=== PATIENT | female | born 1940 | race Caucasian/White ===

== ENCOUNTER → 2017-12-29 | Outpatient (CLI) | payer MEDICARE ==
--- NOTE | 2017-12-30 02:40 | MR ---
EXAMINATION TYPE: MR brain/orbits wo/w con DATE OF EXAM: 12/29/2017 COMPARISON: None HISTORY: Headaches,Double Vision, [place] Palsy, Weight gain TECHNIQUE: Multiplanar, multisequence images of the brain and brainstem is performed without and with IV contras t, utilizing 12.5 mL intravenous Gadavist . FINDINGS: There is cerebral cortical atrophy. There is no mass effect nor midline shift. There is no sign of in tracranial hemorrhage. Corpus callosum appears normal. The brainstem appears normal. Sella turcica ap pears normal. The globes are symmetric. There is a elongated 16 x 8 mm area of dense uniform pathologic enhancement on the superior aspect of the right retro-orbital soft tissues. This appears to be contiguous with a draining vein. IMPRESSION: Superior retro-orbital enhancing mass on the right side. 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 Mild cerebral cortical atrophy appropriate for age. Otherwise negative MR scan of the brain.
== END | disposition home or self-care (01) ==
LOC: RADMRIMAIN 18:18
PROVIDERS: ATTEND Ophthalmology
DX: G31.1 Senile degeneration of brain, not elsewhere classified (principal); H05.89 Other disorders of orbit
CPT/HCPCS: 70543; 70553; A9581

== ENCOUNTER 2018-03-01 11:15 | Inpatient (IN) | payer MEDICARE ==
[2018-03-01 14:11] VITALS: BMI 42.4
[2018-03-01] MEDS ORDERED: VANCOMYCIN IV PER PHARMACY 1 EACH MISC MISCELLANE PRN (15:02)
[2018-03-01 15:12] LABS: Basophils # (A) 0.1 k/uL (0-0.2); Basophils % (A) 1 %; Eosinophils # (A) 0.4 k/uL (0-0.7); Eosinophils % (A) 4 %; HCT 30.6 % (34.0-46.0); HGB 9.9 gm/dL (11.4-16.0); Lymphocytes # (A) 2.1 k/uL (1.0-4.8); Lymphocytes % (A) 18 %; MCHC 32.4 g/dL (31.0-37.0); MCV 86.4 fL (80.0-100.0); Mean Platelet Volume 7.8; Monocytes # (A) 0.8 k/uL (0-1.0); Monocytes % (A) 7 %; Neutrophils % (A) 68 %; Platelet Count 283 k/uL (150-450); RBC 3.55 m/uL (3.80-5.40); RDW 13.9 % (11.5-15.5); WBC 11.8 k/uL (3.8-10.6)
--- NOTE | 2018-03-01 15:19 | P.HPIM ---
History of Present Illness 77-year-old pleasant female was transferred from [facility] because of her possible bilateral pneumonia. Patient presented there with the cellulitis of bilateral lower extremity more right more than left and the left has an ulcer and had a recent the laser procedure for varicose veins in bilateral lower extremities. Patient presented there with type fever confusion. Patient also had a year that is positive although patient doesn't have any symptoms of urinary tract infection urine culture is positive for Enterococcus faecalis sensitive to ampicillin and vancomycin. Patient was started on Unasyn and vancomycin with improvement in the white blood cell count from 25,000-10,000 and improvement in her fevers although chest x-ray today morning is read as bilateral diffuse pneumonia and do not have any influenza available from their lab wound cultures are not available at this time patient although her creatinine has improved from 1.5-1.1. She was later switched to Cipro when they found she has pneumonia. Patient is afebrile for 48 hours. Patient was comparing of dry cough without any sputum production In route to the hospital patient was comparing a pressure-like chest pain in the retrosternal area nonradiating not associated with the be breathing, EKG did not show any significant ST-T wave changes nonspecific T-wave changes on the inferior leads troponin will be obtained patient was not diaphoretic patient pain lasted for a few minutes area was checked, the troponin and another EKG in 8 hours. Review of Systems REVIEW OF SYSTEMS: CONSTITUTIONAL: No fever, no malaise, no fatigue. HEENT: No recent visual problems or hearing problems. Denied any sore throat. CARDIOVASCULAR: No chest pain, orthopnea, PND, no palpitations, no syncope. PULMONARY: No shortness of breath, no cough, no hemoptysis. GASTROINTESTINAL: No diarrhea, no nausea, no vomiting, no abdominal pain. Normoactive bowel sounds. NEUROLOGICAL: No headaches, no weakness, no numbness. HEMATOLOGICAL: Denies any bleeding or petechiae. GENITOURINARY: Denies any burning micturition, frequency, or urgency. MUSCULOSKELETAL/RHEUMATOLOGICAL: Denies any joint pain, swelling, or any muscle pain. ENDOCRINE: Denies any polyuria or polydipsia. The rest of the 14-point review of systems is negative. Past Medical History Past Medical History: Diabetes Mellitus, Hypertension, Osteoarthritis (OA), Thyroid Disorder History of Any Multi-Drug Resistant Organisms: None Reported Past Surgical History: Orthopedic Surgery Additional Past Surgical History / Comment(s): laser sx for veins Past Psychological History: Depression Additional Psychological History / Comment(s): pt lives alone four story single family house. Smoking Status: Former smoker - Past Family History Mother Family Medical History: Dementia, Hypertension Father Additional Family Medical History / Comment(s): colon cancer Medications and Allergies Allergies Allergy/AdvReac Type Severity Reaction Status Date / Time No Known Allergies Allergy Verified 03/01/18 14:58 Physical Exam Vitals: Vital Signs Temp Pulse Resp BP Pulse Ox 03/01/18 14:00 98.6 F 67 18 155/67 94 L Intake and Output 03/01/18 03/01/18 03/01/18 06:59 14:59 22:59 Other: Weight 122.9 kg PHYSICAL EXAMINATION: GENERAL: The patient is alert and oriented x3, not in any acute distress. Well developed, well nourished. HEENT: Pupils are round and equally reacting to light. EOMI. No scleral icterus. No conjunctival pallor. Normocephalic, atraumatic. No pharyngeal erythema. No thyromegaly. CARDIOVASCULAR: S1 and S2 present. No murmurs, rubs, or gallops. PULMONARY: Chest is clear to auscultation, no wheezing or crackles. ABDOMEN: Soft, nontender, nondistended, normoactive bowel sounds. No palpable organomegaly. MUSCULOSKELETAL: No joint swelling or deformity. EXTREMITIES: No cyanosis, clubbing, or pedal edema. NEUROLOGICAL: Gross neurological examination did not reveal any focal deficits. SKIN: There is mild cellulitis in the right lower extremity with local is of temperature no tenderness just above the ankle area and the estevez and the patient has an ulcer in the left leg lateral aspect few centimeters able ankle with surrounding cellulitis. Thrombosis Risk Factor Assmnt - Choose All That Apply Any of the Below Risk Factors Present?: No Other Risk Factors: Yes Each Risk Factor Represents 3 Points: Age 75 years or older Thrombosis Risk Factor Assessment Total Risk Factor Score: 3 Thrombosis Risk Factor Assessment Level: Moderate Risk Assessment and Plan Plan: -Sepsis which improved at this time most probably due to cellulitis patient was on vancomycin and Zosyn and infectious disease will be consulted will obtain he has a PCR testing testing her chest x-ray findings. We'll try to find out from [facility] if they obtain any wound cultures. -Bilateral infiltrates suspicious for pneumonia although patient with clinical symptomatology is not typical for pneumonia the other differentials being acute lung injury from sepsis, atypical pneumonia or influenza pneumonia. Infectious disease was consulted will repeat the chest x-ray here to better characterize the infiltrates. She is having dry cough. -Hypothyroidism -Type 2 diabetes mellitus -Acute renal failure secondary to sepsis which improved at this time. Sepsis improved as well. -Hypertension -Awaiting for her medications to be verified was that done I'll do the medication reconciliation for above-mentioned chronic medical problems
[2018-03-01 15:21] LABS: Albumin 2.8 g/dL (3.5-5.0); Calcium 9.1 mg/dL (8.4-10.2); Potassium 3.9 mmol/L (3.5-5.1); Total Bilirubin 0.3 mg/dL (0.2-1.3); Total Protein 6.2 g/dL (6.3-8.2)
--- NOTE | 2018-03-01 15:28 | XR ---
EXAMINATION TYPE: XR chest 2V DATE OF EXAM: 03/01/2018 COMPARISON: Prior chest x-ray dated 02/08/2015 HISTORY: Pneumonia TECHNIQUE: Frontal and lateral views of the chest are obtained. FINDINGS: Bilateral airspace disease is present. No evident pneumothorax or pleural effusion. Cardio mediastinal silhouette, pulmonary vascularity and ana cristina are within normal limits. IMPRESSION: Correlate for pneumonia, pulmonary edema, alveolitis.
[2018-03-01] MEDS ORDERED: VANCOMYCIN 2,250 MG in SODIUM CHLORIDE 0.9% 500 ML 500 ML IVPB ONE ×2 (16:00→17:00)
[2018-03-01] MEDS ORDERED: PIPERACILLIN-TAZOBACTAM 3.375 GM in SODIUM CHLORIDE 0.9% 100 ML IVPB SCH (16:00)
[2018-03-01] MEDS: HEPARIN SODIUM,PORCINE 5,000 UNIT/ML 1 ML VIAL SQ SCH ×2 (16:31→23:14)
[2018-03-01 17:29] LABS: Glucose,Whole Blood 104 mg/dL (75-99)
[2018-03-01] MEDS: INSULIN ASPART 100 UNIT/ML 1 ML 10 ML VIAL SQ SCH ×2 (18:00→22:19)
[2018-03-01] MEDS: AMPICILLIN-SULBACTAM 3 GM in SODIUM CHLORIDE 0.9% 100 ML IVPB SCH ×2 (18:43→23:14)
[2018-03-01 20:39] LABS: Glucose,Whole Blood 145 mg/dL (75-99)
[2018-03-01] MEDS ORDERED: MECLIZINE 25 MG TAB PO PRN (21:10)
[2018-03-01] MEDS ORDERED: NITROGLYCERIN SL TABS 0.4 MG TAB SUBLINGUAL PRN (21:10)
[2018-03-01] MEDS ORDERED: IBUPROFEN 800 MG TAB PO PRN (21:10)
[2018-03-01] MEDS ORDERED: ACETAMINOPHEN TAB 325 MG TAB PO PRN (21:17)
[2018-03-01] MEDS: FAMOTIDINE 20 MG TAB PO SCH (22:18)
[2018-03-01] MEDS: INSULIN DETEMIR 100 UNIT/ML 10 ML VIAL SQ SCH (22:18)
--- NOTE | 2018-03-01 23:48 | P.CONS ---
History of Present Illness - Reason for Consult Consult date: 03/01/18 - Chief Complaint weakness - History of Present Illness 77-year-old female who lives independently, was transferred to her facility after several days of inpatient stay at the outside hospital. The patient's daughter is present and helps with the past history, apparently the patient was not feeling well and the coworker. 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 They came and checked on her she seemed to be ill but cognizant. Apparently after that she lost 3 days of time, she did not take care of herself, she did not take care of her cat, she did not take her medications and eventually awoken to EMS in her home. She was transferred local hospital and it was not 2 hours later she started to have an understanding that she had become ill. She's not had an episode like this in the past. The patient does have a history of significant chronic venous stasis to her lower extremities has been cared for in the outpatient setting. She's undergone multiple procedures to the lower extremities with laser venous ablation therapy and injection treatments for her chronic venous stasis and the results and ulcerations. She relates since procedures she's had some improvement but still having some ulcerations to her left leg. She does relate that she has significant degenerative joint disease was also to potentially receive some stem cell injections into her left knee for her chronic difficulties. Patient however became very ill and was hospitalized. During her hospital stay multiple events occurred including evidence of a positive blood culture with Streptococcus, urine culture with enterococcus in the markedly elevated BNP level. The patient relates she is feeling better but has developed some worsening shortness of breath that was not present at admission this seems to be showing just some improvement at this point in time since she has been back on some Lasix therapy. The patient relates that she routinely is supposed to be on Lasix however whenever she travels she stops taking Lasix because it makes her urinate too much. She does have a trip to [place] scheduled coming up soon and she is aware that she is not currently able to make that trip. She does not believe that she's been taking her Lasix since there December. Review of Systems HEENT:Denies headache or acute visual change. Denies sinus or mouth discomforts. Denies neck stiffness or pain. Denies significant oral cavity pain. Denies difficulty on swallowing. Lungs:As per the HPI has had difficulties with shortness of breath, denies significant cough or sputum production no hemoptysis Cardiovascular: Has had some chest pain and fullness but not severe enough that she would take nitroglycerin for. As noted she's had shortness of breath orthopnea and dyspnea on exertion but overall somewhat improved over the last day but still persistent Gastrointestinal:Denies nausea, vomiting, diarrhea, constipation, hematemesis, melena, hematochezia. No no significant change of bowel habit noticed. Musculoskeletal: denies significant myalgias or arthralgias. No new joint swelling. Denies new back pain. Skin: Ulcers to left leg Neuro: Denies headache or visual change. Denies any new onset weakness or difficulty with ambulation. Denies falls or seizures. Psychiatric:Denies anxiety or depression. Endocrine: chronic fatigue and weight gain Past Medical History Past Medical History: Diabetes Mellitus, Hypertension, Osteoarthritis (OA), Thyroid Disorder History of Any Multi-Drug Resistant Organisms: None Reported Past Surgical History: Orthopedic Surgery Additional Past Surgical History / Comment(s): laser sx for veins Past Psychological History: Depression Additional Psychological History / Comment(s): pt lives alone four story single family house. . Still works in a local factory. No experience. Was on a cruise in December in the [place]. Pet cat at home. Adult daughter remains her primary contact. no current tobacco use no alcohol use Smoking Status: Former smoker - Past Family History Mother Family Medical History: Dementia, Hypertension Father Additional Family Medical History / Comment(s): colon cancer Medications and Allergies Home Medications and Allergies Comment(s): Current Medications Acetaminophen (Tylenol Tab) 650 mg PO Q6HR PRN PRN Reason: Fever and/ or Pain Aspirin (Aspirin) 81 mg PO DAILY [facility] Citalopram Hydrobromide (Celexa) 20 mg PO DAILY [facility] Diltiazem HCl (Cardizem Cd) 300 mg PO DAILY [facility] Famotidine (Pepcid) 20 mg PO BID [facility] Last Admin: 03/01/18 22:18 Dose: 20 mg Furosemide (Lasix) 40 mg PO DAILY [facility] Heparin Sodium (Porcine) (Heparin) 5,000 unit SQ Q8HR [facility] Last Admin: 03/01/18 23:14 Dose: 5,000 unit Hydrochlorothiazide (Hydrodiuril) 25 mg PO DAILY [facility] Ampicillin Sodium/Sulbactam (Sodium 3 gm/ Sodium Chloride) 100 mls @ 200 mls/ hr IVPB Q6HR [facility] Last Admin: 03/01/18 23:14 Dose: 200 mls/hr Ibuprofen (Motrin) 800 mg PO TID PRN PRN Reason: Pain Insulin Aspart (Novolog) 0 unit SQ ACHS [facility]; Protocol Last Admin: 03/01/18 22:19 Dose: 1 unit Insulin Detemir (Levemir) 30 unit SQ HS [facility] Last Admin: 03/01/18 22:18 Dose: 30 unit Levothyroxine Sodium (Synthroid) 200 mcg PO DAILY@0630 [facility] Lisinopril (Zestril) 40 mg PO DAILY [facility] Meclizine HCl (Antivert) 25 mg PO TID PRN PRN Reason: Vertigo Nitroglycerin (Nitrostat) 0.4 mg SUBLINGUAL Q5M PRN PRN Reason: Chest Pain Victoza 1.8mg 1.8 mg SQ DAILY [facility] Pantoprazole Sodium (Protonix) 40 mg PO AC-[id number] [facility] Home Medications Medication Instructions Recorded Confirmed Type Aspirin EC [Ecotrin Low Dose] 81 mg PO DAILY 03/01/18 03/01/18 History Citalopram Hydrobromide [CeleXA] 20 mg PO DAILY 03/01/18 03/01/18 History Diltiazem HCl [Diltiazem ER] 300 mg PO DAILY 03/01/18 03/01/18 History Furosemide [Lasix] 40 mg PO DAILY 03/01/18 03/01/18 History Hydrochlorothiazide [Hydrodiuril] 25 mg PO DAILY 03/01/18 03/01/18 History Ibuprofen [Motrin] 800 mg PO TID PRN 03/01/18 03/01/18 History Insulin Glargine,Hum.rec.anlog 30 unit SQ DAILY 03/01/18 03/01/18 History [Lantus Solostar] Lansoprazole 30 mg PO DAILY 03/01/18 03/01/18 History Levothyroxine Sodium [Synthroid] 200 mcg PO DAILY 03/01/18 03/01/18 History Liraglutide [Victoza 3-Andrea] 1.8 mg SQ DAILY 03/01/18 03/01/18 History Lisinopril 40 mg PO DAILY 03/01/18 03/01/18 History Meclizine [Antivert] 25 mg PO TID PRN 03/01/18 03/01/18 History Nitroglycerin Sl Tabs [Nitrostat] 0.4 mg SUBLINGUAL Q5M PRN 03/01/18 03/01/18 History Allergies Allergy/AdvReac Type Severity Reaction Status Date / Time No Known Allergies Allergy Verified 03/01/18 14:58 Physical Exam Vitals: Vital Signs Temp Pulse Resp BP Pulse Ox 03/01/18 22:43 98.0 F 71 18 145/70 96 03/01/18 14:00 98.6 F 67 18 155/67 94 L Intake and Output 03/01/18 03/01/18 03/02/18 14:59 22:59 06:59 Other: Weight 122.9 kg Pleasant 77-year-old woman who has obesity is modestly comfortable at this time HEENT: Anicteric conjunctiva are pink and moist nasal mucosa grossly intact without significant lesions, there is no thrush. Dentition is poor Neck: The neck is supple without significant lymphadenopathy or thyromegaly. Lungs: There is symmetrical bilateral air entry, few basilar crackles without significant bronchial sounds no dullness or egophony is noted Heart: Regular rate and rhythm with an audible S1-S2, no S3 soft S4. 2/6 systolic murmur left sternal border that radiates to the axilla PMI is nondisplaced without heave or thrill Abdomen: Obese, Positive bowel sounds soft and nontender without palpable masses or organomegaly. There was no guarding or rebound. Extremities: The upper extremities have excellent pulses they are symmetric, no significant petechiae or telangiectasia. No splinter hemorrhages were noted. The lower extremities revealed evidence of the lower extremity edema right greater than left at this time. There is evidence of some erythema to the right leg with some warmth and minimal tenderness. There are ulcerations in the left lateral leg please see the nursing photography for evaluation of these ulcerations that are full-thickness and present on admission. Appear to be venous stasis in nature. The legs are not very tender. Neuro: Awake alert oriented to person place and time. There are no acute new gross focal sensory motor deficits.Daughter was present relates that her mother is at her baseline mental status with no new deficits. Results CBC & Chem 7: 03/01/18 15:00 03/01/18 15:00 Labs: Abnormal Lab Results - Last 24 Hours (Table) 03/01/18 03/01/18 03/01/18 Range/Units 15:00 15:00 17:26 WBC 11.8 H (3.8-10.6) k/uL RBC 3.55 L (3.80-5.40) m/uL Hgb 9.9 L (11.4-16.0) gm/dL Hct 30.6 L (34.0-46.0) % Neutrophils # 8.0 H (1.3-7.7) k/uL Glucose 124 H (74-99) mg/dL POC Glucose (mg/dL) 104 H (75-99) mg/dL Total Protein 6.2 L (6.3-8.2) g/dL Albumin 2.8 L (3.5-5.0) g/dL 03/01/18 Range/Units 20:38 WBC (3.8-10.6) k/uL RBC (3.80-5.40) m/uL Hgb (11.4-16.0) gm/dL Hct (34.0-46.0) % Neutrophils # (1.3-7.7) k/uL Glucose (74-99) mg/dL POC Glucose (mg/dL) 145 H (75-99) mg/dL Total Protein (6.3-8.2) g/dL Albumin (3.5-5.0) g/dL Laboratory Results WBC 11.8 k/uL (3.8-10.6) H 03/01/18 15:00 RBC 3.55 m/uL (3.80-5.40) L 03/01/18 15:00 Hgb 9.9 gm/dL (11.4-16.0) L 03/01/18 15:00 Hct 30.6 % (34.0-46.0) L 03/01/18 15:00 MCV 86.4 fL (80.0-100.0) 03/01/18 15:00 MCH 28.0 pg (25.0-35.0) 03/01/18 15:00 MCHC 32.4 g/dL (31.0-37.0) 03/01/18 15:00 RDW 13.9 % (11.5-15.5) 03/01/18 15:00 Plt Count 283 k/uL (150-450) 03/01/18 15:00 Neutrophils % 68 % 03/01/18 15:00 Lymphocytes % 18 % 03/01/18 15:00 Monocytes % 7 % 03/01/18 15:00 Eosinophils % 4 % 03/01/18 15:00 Basophils % 1 % 03/01/18 15:00 Neutrophils # 8.0 k/uL (1.3-7.7) H 03/01/18 15:00 Lymphocytes # 2.1 k/uL (1.0-4.8) 03/01/18 15:00 Monocytes # 0.8 k/uL (0-1.0) 03/01/18 15:00 Eosinophils # 0.4 k/uL (0-0.7) 03/01/18 15:00 Basophils # 0.1 k/uL (0-0.2) 03/01/18 15:00 Sodium 138 mmol/L (137-145) 03/01/18 15:00 Potassium 3.9 mmol/L (3.5-5.1) 03/01/18 15:00 Chloride 103 mmol/L (98-107) 03/01/18 15:00 Carbon Dioxide 27 mmol/L (22-30) 03/01/18 15:00 Anion Gap 8 mmol/L 03/01/18 15:00 BUN 17 mg/dL (7-17) 03/01/18 15:00 Creatinine 0.99 mg/dL (0.52-1.04) 03/01/18 15:00 Est GFR (CKD-EPI)AfAm 64 (>60 ml/min/1.73 sqM) 03/01/18 15:00 Est GFR (CKD-EPI)NonAf 56 (>60 ml/min/1.73 sqM) 03/01/18 15:00 Glucose 124 mg/dL (74-99) H 03/01/18 15:00 POC Glucose (mg/dL) 145 mg/dL (75-99) H 03/01/18 20:38 POC Glu Head Of Ethics And Compliance ID Dye, Maribeth 03/01/18 20:38 Calcium 9.1 mg/dL (8.4-10.2) 03/01/18 15:00 Total Bilirubin 0.3 mg/dL (0.2-1.3) 03/01/18 15:00 AST 23 U/L (14-36) 03/01/18 15:00 ALT 33 U/L (9-52) 03/01/18 15:00 Alkaline Phosphatase 66 U/L (38-126) 03/01/18 15:00 Troponin I <0.012 ng/mL (0.000-0.034) 03/01/18 15:00 NT-Pro-B Natriuret Pep 863 pg/mL 03/01/18 15:00 Total Protein 6.2 g/dL (6.3-8.2) L 03/01/18:00 Albumin 2.8 g/dL (3.5-5.0) L 03/01/18 15: Random Vancomycin <5.0 ug/mL 03/01/18 15:00 Assessment and Plan (1) Streptococcal sepsis Narrative/Plan: 77 show female presents an outside hospital with alteration of her mental status and was not functioning well for approximately 3 days. She is now had a recovery of her neurological status and is clear and interactive. However continues to feel short of breath and has had some chest heaviness. She relates it does not feel like the tenderness that she had some and she takes her nitroglycerin. Patient has evidence of the lower extremity erythema and ulcerations of the left leg. It appears the skin is a portal of entry for her streptococcal sepsis. As noted there is also urinary tract infection with enterococcus. Consequently antibiotic therapy is transitioned to Unasyn which should give us excellent coverage for both of these isolated pathogens. Follow blood cultures have been requested. The patient also appears to have evidence of congestive heart failure as etiology of the changes on her chest x-ray. She did have a computed tomography scan at the other hospital which failed to reveal evidence of pulmonary embolism , however there was evidence of some change that is now considerably worsened after she has had significant amounts of hydration. She was or shortness of breath is improving she's had some Lasix. Echocardiogram is requested to further evaluate her congestive heart failure, her ejection fraction and the extent of her murmur It is likely that her congestive heart failure was worsened by the onset of the sepsis and her lack of compliance with taking her Lasix in the outpatient setting. I agree that the patient will not be ready to go to [facility]. Current Visit: Yes Status: Acute Code(s): A40.9 - STREPTOCOCCAL SEPSIS, UNSPECIFIED SNOMED Code(s): 526444194 (2) Enterococcus UTI Current Visit: Yes Status: Acute Code(s): N39.0 - URINARY TRACT INFECTION, SITE NOT SPECIFIED; B95.2 - ENTEROCOCCUS THE CAUSE OF DISEASES CLASSIFIED ELSEWHERE SNOMED Code(s): 169710979643225 (3) Acute on chronic systolic (congestive) heart failure Current Visit: Yes Status: Acute Code(s): I50.23 - ACUTE ON CHRONIC SYSTOLIC (CONGESTIVE) HEART FAILURE SNOMED Code(s): 569949161 (4) Chronic venous hypertension with ulcer Current Visit: Yes Status: Acute Code(s): I87.319 - CHRONIC VENOUS HYPERTENSION W ULCER OF UNSP LOW EXTRM; L97.909 - NON-PRS CHRONIC ULC UNSP PRT OF UNSP LOW LEG W UNSP SEVERITY SNOMED Code(s): 838839717
[2018-03-02] MEDS: AMPICILLIN-SULBACTAM 3 GM in SODIUM CHLORIDE 0.9% 100 ML IVPB SCH ×4 (05:20→23:57)
[2018-03-02] MEDS: LEVOTHYROXINE 100 MCG TAB PO SCH (05:21)
[2018-03-02] MEDS: INSULIN ASPART 100 UNIT/ML 1 ML 10 ML VIAL SQ SCH ×4 (07:12→21:16)
[2018-03-02 07:34] LABS: Glucose,Whole Blood 71 mg/dL (75-99)
[2018-03-02] MEDS: VICTOZA 1.8MG SQ SCH (08:05)
[2018-03-02] MEDS: PANTOPRAZOLE 40 MG TABLET PO SCH (08:06)
[2018-03-02] MEDS: HEPARIN SODIUM,PORCINE 5,000 UNIT/ML 1 ML VIAL SQ SCH ×3 (08:06→23:58)
[2018-03-02] MEDS: ASPIRIN 81 MG PO SCH (08:07)
[2018-03-02] MEDS: LISINOPRIL 20 MG TAB PO SCH (08:07)
[2018-03-02] MEDS: DILTIAZEM CD 300 MG CAP.ER.24H PO SCH (08:07)
[2018-03-02] MEDS: FUROSEMIDE 40 MG TAB PO SCH (08:07)
[2018-03-02] MEDS: FAMOTIDINE 20 MG TAB PO SCH (08:07)
[2018-03-02] MEDS: HYDROCHLOROTHIAZIDE 25 MG TAB PO SCH (08:07)
[2018-03-02] MEDS: CITALOPRAM HYDROBROMIDE 20 MG TAB PO SCH (08:07)
[2018-03-02] MEDS ORDERED: VICTOZA 1.8MG SQ SCH (09:00)
[2018-03-02 09:31] LABS: HGB 10.3 gm/dL (11.4-16.0); MCH 27.4 pg (25.0-35.0); MCHC 31.3 g/dL (31.0-37.0); MCV 87.4 fL (80.0-100.0); Mean Platelet Volume 7.7; Platelet Count 347 k/uL (150-450); RBC 3.77 m/uL (3.80-5.40); RDW 13.9 % (11.5-15.5); WBC 11.2 k/uL (3.8-10.6)
[2018-03-02 09:51] LABS: Calcium 9.1 mg/dL (8.4-10.2)
[2018-03-02] MEDS ORDERED: VANCOMYCIN 2,250 MG in SODIUM CHLORIDE 0.9% 500 ML 500 ML IVPB SCH (12:00)
[2018-03-02 12:24] LABS: Glucose,Whole Blood 102 mg/dL (75-99)
--- NOTE | 2018-03-02 13:23 | P.PN ---
Subjective 77-year-old female admitted secondary to sepsis from a cellulitis of bilateral lower extremity is predominantly in the left lower extremity. Patient is on Unasyn and vancomycin and do not have any wound cultures available from the other hospital. Patient appears to have all the lightest from my mild acute lung injury from sepsis and do not believe patient has CHF exacerbation. Echocardiogram is pending patient's BNP is 800 patient does not have any JVD. No clinical evidence of heart failure or heart failure exacerbation at this time. My suspicion is extremely low for pneumonia. Patient may have asymptomatic bacteriuria does have urine cultures positive for enterococcus. Constitutional: Denied any fatigue denied any fever. Cardio vascular: denied any chest pain, palpitations Gastrointestinal denied any nausea vomiting Pulmonary: Denied any shortness of breath cough Neurologic denied any new focal deficits All inpatient medications were reviewed and appropriate changes in these medications as dictated in the interval history and assessment and plan. Objective - Vital Signs Vital signs: Vital Signs Temp 97.0 F L 03/02/18 13:12 Pulse 69 03/02/18 13:12 Resp 17 03/02/18 13:12 BP 145/59 03/02/18 13:12 Pulse Ox 95 03/02/18 13:12 Intake & Output 03/01/18 03/02/18 03/02/18 18:59 06:59 18:59 Weight 122.9 kg 124 kg Other: # Voids 2 1 - Exam PHYSICAL EXAMINATION: GENERAL: The patient is alert and oriented x3, not in any acute distress. Well developed, well nourished. HEENT: Pupils are round and equally reacting to light. EOMI. No scleral icterus. No conjunctival pallor. Normocephalic, atraumatic. No pharyngeal erythema. No thyromegaly. CARDIOVASCULAR: S1 and S2 present. No murmurs, rubs, or gallops. PULMONARY: Chest is clear to auscultation, no wheezing or crackles. ABDOMEN: Soft, nontender, nondistended, normoactive bowel sounds. No palpable organomegaly. MUSCULOSKELETAL: No joint swelling or deformity. EXTREMITIES: No cyanosis, clubbing, or pedal edema. NEUROLOGICAL: Gross neurological examination did not reveal any focal deficits. SKIN: There is mild cellulitis in the right lower extremity with local is of temperature no tenderness just above the ankle area and the estevez and the patient has an ulcer in the left leg lateral aspect few centimeters able ankle with surrounding cellulitis. - Labs CBC & Chem 7: 03/02/18 09:00 03/02/18 09:00 Labs: Abnormal Lab Results - Last 24 Hours (Table) 03/01/18 03/01/18 03/01/18 Range/Units 15:00 15:00 15:00 WBC 11.8 H (3.8-10.6) k/uL RBC 3.55 L (3.80-5.40) m/uL Hgb 9.9 L (11.4-16.0) gm/dL Hct 30.6 L (34.0-46.0) % Neutrophils # 8.0 H (1.3-7.7) k/uL Glucose 124 H (74-99) mg/dL POC Glucose (mg/dL) (75-99) mg/dL Total Protein 6.2 L (6.3-8.2) g/dL Albumin 2.8 L (3.5-5.0) g/dL Procalcitonin 0.37 H (0.02-0.09) ng/mL 03/01/18 03/01/18 03/02/18 Range/Units 17:26 20:38 07:08 WBC (3.8-10.6) k/uL RBC (3.80-5.40) m/uL Hgb (11.4-16.0) gm/dL Hct (34.0-46.0) % Neutrophils # (1.3-7.7) k/uL Glucose (74-99) mg/dL POC Glucose (mg/dL) 104 H 145 H 71 L (75-99) mg/dL Total Protein (6.3-8.2) g/dL Albumin (3.5-5.0) g/dL Procalcitonin (0.02-0.09) ng/mL 03/02/18 03/02/18 03/02/18 Range/Units 09:00 09:00 12:16 WBC 11.2 H (3.8-10.6) k/uL RBC 3.77 L (3.80-5.40) m/uL Hgb 10.3 L (11.4-16.0) gm/dL Hct 33.0 L (34.0-46.0) % Neutrophils # (1.3-7.7) k/uL Glucose 102 H (74-99) mg/dL POC Glucose (mg/dL) 102 H (75-99) mg/dL Total Protein (6.3-8.2) g/dL Albumin (3.5-5.0) g/dL Procalcitonin (0.02-0.09) ng/mL Assessment and Plan Plan: -Sepsis which improved at this time most probably due to cellulitis patient was on vancomycin and Unasyn and infectious disease evaluated the patient will obtain he has a PCR testing testing her chest x-ray findings suggestive probably a lightheadedness clinical suspicion for CHF is extremely low. We'll try to find out from [facility] if they obtain any wound cultures. Patient's pro calcitonin levels are minimally elevated -Bilateral infiltrates suspicious for pneumonia although patient with clinical symptomatology is not typical for pneumonia the other differentials being acute lung injury from sepsis, atypical pneumonia or influenza pneumonia. I do not believe patient has CHF. -Hypothyroidism -Type 2 diabetes mellitus -Acute renal failure secondary to sepsis which improved at this time. Sepsis improved as well. -Hypertension -Acute renal failure improved
--- NOTE | 2018-03-02 14:14 | ECHOF ---
Referral Reason:CHF MEASUREMENTS -------- HEIGHT: 170.2 cm WEIGHT: 123.8 kg BP: 145/70 RVIDd: 3.6 cm (< 3.3) IVSd: 1.5 cm (0.6 - 1.1) LVIDd: 4.3 cm (3.9 - 5.3) LVPWd: 1.4 cm (0.6 - 1.1) IVSs: 2.0 cm LVIDs: 3.0 cm LVPWs: 1.8 cm LA Diam: 4.4 cm (2.7 - 3.8) LAESV Index (A-L): 32.06 ml/m Ao Diam: 2.9 cm (2.0 - 3.7) AV Cusp: 1.5 cm (1.5 - 2.6) MV EXCURSION: 12.538 mm (> 18.000) MV EF SLOPE: 75 mm/s (70 - 150) EPSS: 0.7 cm MV E Kvng: 1.62 m/s MV DecT: 269 ms MV A Kvng: 0.94 m/s MV E/A Ratio: 1.72 AV maxP.60 mmHg AV meanP.20 mmHg AR PHT: 402 ms RAP: 5.00 mmHg RVSP: 37.42 mmHg FINDINGS -------- Sinus rhythm. This was a technically adequate study. The left ventricular size is normal. There is moderate concentric left ventricular hypertrophy. O verall left ventricular systolic function is normal with, an EF between 60 - 65 %. The right ventricle is mildly enlarged. LA is midly dilated 29-33ml/m2. The right atrium is normal in size. There is mild aortic valve sclerosis. There is mild aortic regurgitation. The mitral valve leaflets are mildly thickened. Moderate mitral annular calcification present. Mi ld mitral regurgitation is present. Mild tricuspid regurgitation present. There is mild pulmonary hypertension. The right ventricular systolic pressure, as measured by Doppler, is 37.42mmHg. The pulmonic valve was not well visualized. The aortic root size is normal. Normal inferior vena cava with normal inspiratory collapse consistent with estimated right atrial pre ssure of 5 mmHg. The inferior vena cava is mildly dilated. There is no pericardial effusion. CONCLUSIONS -------- 1. Sinus rhythm. 2. This was a technically adequate study. 3. The left ventricular size is normal. 4. There is moderate concentric left ventricular hypertrophy. 5. Overall left ventricular systolic function is normal with, an EF between 60 - 65 %. 6. The right ventricle is mildly enlarged. 7. LA is midly dilated 29-33ml/m2. 8. The right atrium is normal in size. 9. There is mild aortic valve sclerosis. 10. There is mild aortic regurgitation. 11. The mitral valve leaflets are mildly thickened. 12. Moderate mitral annular calcification present. 13. Mild mitral regurgitation is present. 14. Mild tricuspid regurgitation present. 15. There is mild pulmonary hypertension. 16. The right ventricular systolic pressure, as measured by Doppler, is 37.42mmHg. 17. The pulmonic valve was not well visualized. 18. The aortic root size is normal. 19. Normal inferior vena cava with normal inspiratory collapse consistent with estimated right atrial pressure of 5 mmHg. 20. The inferior vena cava is mildly dilated. 21. There is no pericardial effusion. HEEL CEMENTER MACHINE: Kristine Rodriguez RDCS
[2018-03-02 17:07] LABS: Glucose,Whole Blood 113 mg/dL (75-99)
[2018-03-02 20:52] LABS: Glucose,Whole Blood 154 mg/dL (75-99)
[2018-03-02] MEDS: INSULIN DETEMIR 100 UNIT/ML 10 ML VIAL SQ SCH (21:16)
--- NOTE | 2018-03-02 21:38 | P.PN ---
Subjective Progress Note Date: 03/02/18 77-year-old female who lives independently, was transferred to her facility after several days of inpatient stay at the outside hospital. The patient's daughter is present and helps with the past history, apparently the patient was not feeling well and the coworker. 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 They came and checked on her she seemed to be ill but cognizant. Apparently after that she lost 3 days of time, she did not take care of herself, she did not take care of her cat, she did not take her medications and eventually awoken to EMS in her home. She was transferred local hospital and it was not 2 hours later she started to have an understanding that she had become ill. She's not had an episode like this in the past. The patient does have a history of significant chronic venous stasis to her lower extremities has been cared for in the outpatient setting. She's undergone multiple procedures to the lower extremities with laser venous ablation therapy and injection treatments for her chronic venous stasis and the results and ulcerations. She relates since procedures she's had some improvement but still having some ulcerations to her left leg. She does relate that she has significant degenerative joint disease was also to potentially receive some stem cell injections into her left knee for her chronic difficulties. Patient however became very ill and was hospitalized. During her hospital stay multiple events occurred including evidence of a positive blood culture with Streptococcus, urine culture with enterococcus in the markedly elevated BNP level. The patient relates she is feeling better but has developed some worsening shortness of breath that was not present at admission this seems to be showing just some improvement at this point in time since she has been back on some Lasix therapy. The patient relates that she routinely is supposed to be on Lasix however whenever she travels she stops taking Lasix because it makes her urinate too much. She does have a trip to [place] scheduled coming up soon and she is aware that she is not currently able to make that trip. She does not believe that she's been taking her Lasix since there December. 03/02/2018 patient's feeling considerably better today. With diuretic therapy, antibiotics and lower extremity treatment she's feeling considerably better. The edema is improving. The right lower extremity erythema is also improved and there is much less tenderness. Blood Sugars are also improving. Objective - Vital Signs Vital signs: Vital Signs Temp 98.4 F 03/02/18 14:54 Pulse 70 03/02/18 14:54 Resp 20 03/02/18 14:54 BP 160/61 03/02/18 14:54 Pulse Ox 94 L 03/02/18 14:54 Intake & Output 03/02/18 03/02/18 03/03/18 06:59 18:59 06:59 Intake Total 240 Balance 240 Weight 124 kg Intake: Oral 240 Other: Voiding Method Toilet # Voids 2 1 - Exam Pleasant 77-year-old woman who has obesity is modestly comfortable at this time HEENT: Anicteric conjunctiva are pink and moist nasal mucosa grossly intact without significant lesions, there is no thrush. Dentition is poor Neck: The neck is supple without significant lymphadenopathy or thyromegaly. Lungs: There is symmetrical bilateral air entry, few basilar crackles without significant bronchial sounds no dullness or egophony is noted Heart: Regular rate and rhythm with an audible S1-S2, no S3 soft S4. 2/6 systolic murmur left sternal border that radiates to the axilla PMI is nondisplaced without heave or thrill Abdomen: Obese, Positive bowel sounds soft and nontender without palpable masses or organomegaly. There was no guarding or rebound. Extremities: The upper extremities have excellent pulses they are symmetric, no significant petechiae or telangiectasia. No splinter hemorrhages were noted. The lower extremities revealed evidence of the lower extremity edema right greater than left at this time. There is evidence of some erythema to the right leg with some warmth and minimal tenderness which has improved today. There are ulcerations in the left lateral leg please see the nursing photography for evaluation of these ulcerations that are full-thickness and present on admission. Appear to be venous stasis in nature. The legs are not very tender. Neuro: Awake alert oriented to person place and time. There are no acute new gross focal sensory motor deficits.Daughter was present relates that her mother is at her baseline mental status with no new deficits. - Labs CBC & Chem 7: 03/02/18 09:00 03/02/18 09:00 Labs: Abnormal Lab Results - Last 24 Hours (Table) 03/01/18 03/02/18 03/02/18 Range/Units 15:00 07:08 09:00 WBC 11.2 H (3.8-10.6) k/uL RBC 3.77 L (3.80-5.40) m/uL Hgb 10.3 L (11.4-16.0) gm/dL Hct 33.0 L (34.0-46.0) % Glucose (74-99) mg/dL POC Glucose (mg/dL) 71 L (75-99) mg/dL Procalcitonin 0.37 H (0.02-0.09) ng/mL 03/02/18 03/02/18 03/02/18 Range/Units 09:00 12:16 17:05 WBC (3.8-10.6) k/uL RBC (3.80-5.40) m/uL Hgb (11.4-16.0) gm/dL Hct (34.0-46.0) % Glucose 102 H (74-99) mg/dL POC Glucose (mg/dL) 102 H 113 H (75-99) mg/dL Procalcitonin (0.02-0.09) ng/mL 03/02/18 Range/Units 20:50 WBC (3.8-10.6) k/uL RBC (3.80-5.40) m/uL Hgb (11.4-16.0) gm/dL Hct (34.0-46.0) % Glucose (74-99) mg/dL POC Glucose (mg/dL) 154 H (75-99) mg/dL Procalcitonin (0.02-0.09) ng/mL Microbiology - Last 24 Hours (Table) 03/01/18 15:00 Blood Culture - Preliminary Blood No Growth after 24 hours Laboratory Results WBC 11.2 k/uL (3.8-10.6) H 03/02/18 09:00 RBC 3.77 m/uL (3.80-5.40) L 03/02/18 09:00 Hgb 10.3 gm/dL (11.4-16.0) L 03/02/18 09:00 Hct 33.0 % (34.0-46.0) L 03/02/18 09:00 MCV 87.4 fL (80.0-100.0) 03/02/18 09:00 MCH 27.4 pg (25.0-35.0) 03/02/18 09:00 MCHC 31.3 g/dL (31.0-37.0) 03/02/18 09:00 RDW 13.9 % (11.5-15.5) 03/02/18 09:00 Plt Count 347 k/uL (150-450) 03/02/18 09:00 Neutrophils % 68 % 03/01/18 15:00 Lymphocytes % 18 % 03/01/18 15:00 Monocytes % 7 % 03/01/18 15:00 Eosinophils % 4 % 03/01/18 15:00 Basophils % 1 % 03/01/18 15:00 Neutrophils # 8.0 k/uL (1.3-7.7) H 03/01/18 15:00 Lymphocytes # 2.1 k/uL (1.0-4.8) 03/01/18 15:00 Monocytes # 0.8 k/uL (0-1.0) 03/01/18 15:00 Eosinophils # 0.4 k/uL (0-0.7) 03/01/18 15:00 Basophils # 0.1 k/uL (0-0.2) 03/01/18 15:00 Sodium 139 mmol/L (137-145) 03/02/18 09:00 Potassium 4.0 mmol/L (3.5-5.1) 03/02/18 09:00 Chloride 104 mmol/L (98-107) 03/02/18 09:00 Carbon Dioxide 28 mmol/L (22-30) 03/02/18 09:00 Anion Gap 7 mmol/L 03/02/18 09:00 BUN 13 mg/dL (7-17) 03/02/18 09:00 Creatinine 0.98 mg/dL (0.52-1.04) 03/02/18 09:00 Est GFR (CKD-EPI)AfAm 65 (>60 ml/min/1.73 sqM) 03/02/18 09:00 Est GFR (CKD-EPI)NonAf 56 (>60 ml/min/1.73 sqM) 03/02/18 09:00 Glucose 102 mg/dL (74-99) H 03/02/18 09:00 POC Glucose (mg/dL) 154 mg/dL (75-99) H 03/02/18 20:50 POC Glu [employer] Ailin Vidal 03/02/18 20:50 Calcium 9.1 mg/dL (8.4-10.2) 03/02/18 09:00 Total Bilirubin 0.3 mg/dL (0.2-1.3) 03/01/18 15:00 AST 23 U/L (14-36) 03/01/18 15:00 ALT 33 U/L (9-52) 03/01/18 15:00 Alkaline Phosphatase 66 U/L (38-126) 03/01/18 15:00 Troponin I <0.012 ng/mL (0.000-0.034) 03/01/18 15:00 NT-Pro-B Natriuret Pep 863 pg/mL 03/01/18 15:00 Total Protein 6.2 g/dL (6.3-8.2) L 03/01/18 15:00 Albumin 2.8 g/dL (3.5-5.0) L 03/01/18 15:00 Procalcitonin 0.37 ng/mL (0.02-0.09) H 03/01/18 15:00 Random Vancomycin <5.0 ug/mL 03/01/18 15:00 Microbiology 03/01/18 15:00 Blood Blood Culture - Preliminary No Growth after 24 hours Assessment and Plan (1) Streptococcal sepsis Narrative/Plan: 77 year old female presents an outside hospital with alteration of her mental status and was not functioning well for approximately 3 days. She is now had a recovery of her neurological status and is clear and interactive. However continues to feel short of breath and has had some chest heaviness. She relates it does not feel like the tenderness that she had some and she takes her nitroglycerin. Patient has evidence of the lower extremity erythema and ulcerations of the left leg. It appears the skin is a portal of entry for her streptococcal sepsis. As noted there is also urinary tract infection with enterococcus. Consequently antibiotic therapy is transitioned to Unasyn which should give us excellent coverage for both of these isolated pathogens. Follow blood cultures have been requested. The patient also appears to have evidence of congestive heart failure as etiology of the changes on her chest x-ray. She did have a computed tomography scan at the other hospital which failed to reveal evidence of pulmonary embolism , however there was evidence of some change that is now considerably worsened after she has had significant amounts of hydration. She was or shortness of breath is improving she's had some Lasix. Echocardiogram is requested to further evaluate her congestive heart failure, her ejection fraction and the extent of her murmur It is likely that her congestive heart failure was worsened by the onset of the sepsis and her lack of compliance with taking her Lasix in the outpatient setting. I agree that the patient will not be ready to go to [facility]. 03/02/2018 patient's feeling better today. The blood culture from this facility is negative with no evidence of any ongoing bacteremia with strep as noted at the other facility. Patient is denying any new urine symptoms. The patient's echocardiogram reveals evidence of a good ejection fraction, evidence of some valvular regurgitation, and some mild pulmonary hypertension. The patient's BNP has fallen to 800 from 3280 showing a good response to her diuretic therapy. We'll continue with the local care to the lower extremities. Have requested long marianela wraps to be used if compress further up her legs will be more comfortable for her. We discussed the importance of compression in helping this chronic problem. The cellulitis is responding well to the current antibiotic therapy of Unasyn. If she continues to improve at this rate she likely will be able to be discharged home on oral antibiotic therapy. Current Visit: Yes Status: Acute Code(s): A40.9 - STREPTOCOCCAL SEPSIS, UNSPECIFIED SNOMED Code(s): 911085287 (2) Enterococcus UTI Current Visit: Yes Status: Acute Code(s): N39.0 - URINARY TRACT INFECTION, SITE NOT SPECIFIED; B95.2 - ENTEROCOCCUS THE CAUSE OF DISEASES CLASSIFIED ELSEWHERE SNOMED Code(s): 114740185848620 (3) Acute on chronic systolic (congestive) heart failure Current Visit: Yes Status: Acute Code(s): I50.23 - ACUTE ON CHRONIC SYSTOLIC (CONGESTIVE) HEART FAILURE SNOMED Code(s): 959340777 (4) Chronic venous hypertension with ulcer Current Visit: Yes Status: Acute Code(s): I87.319 - CHRONIC VENOUS HYPERTENSION W ULCER OF UNSP LOW EXTRM; L97.909 - NON-PRS CHRONIC ULC UNSP PRT OF UNSP LOW LEG W UNSP SEVERITY SNOMED Code(s): 447776303
[2018-03-03] MEDS: AMPICILLIN-SULBACTAM 3 GM in SODIUM CHLORIDE 0.9% 100 ML IVPB SCH ×4 (06:03→23:56)
[2018-03-03] MEDS: LEVOTHYROXINE 100 MCG TAB PO SCH (06:03)
[2018-03-03 07:05] LABS: Glucose,Whole Blood 110 mg/dL (75-99)
[2018-03-03] MEDS: INSULIN ASPART 100 UNIT/ML 1 ML 10 ML VIAL SQ SCH ×4 (07:45→21:11)
[2018-03-03] MEDS: VICTOZA 1.8MG SQ SCH (07:46)
[2018-03-03] MEDS: LISINOPRIL 20 MG TAB PO SCH (07:47)
[2018-03-03] MEDS: ASPIRIN 81 MG PO SCH (07:47)
[2018-03-03] MEDS: HEPARIN SODIUM,PORCINE 5,000 UNIT/ML 1 ML VIAL SQ SCH ×3 (07:47→23:56)
[2018-03-03] MEDS: CITALOPRAM HYDROBROMIDE 20 MG TAB PO SCH (07:48)
[2018-03-03] MEDS: DILTIAZEM CD 300 MG CAP.ER.24H PO SCH (07:48)
[2018-03-03] MEDS: FUROSEMIDE 40 MG TAB PO SCH (07:48)
[2018-03-03] MEDS: FAMOTIDINE 20 MG TAB PO SCH (07:48)
[2018-03-03] MEDS: HYDROCHLOROTHIAZIDE 25 MG TAB PO SCH (07:48)
[2018-03-03] MEDS: PANTOPRAZOLE 40 MG TABLET PO SCH (07:48)
[2018-03-03 12:14] LABS: Glucose,Whole Blood 127 mg/dL (75-99)
--- NOTE | 2018-03-03 15:36 | P.DS ---
Providers Date of admission: 03/01/18 13:57 Attending physician: Balta Nice Consults: 03/01/18 14:45 Consult Physician Urgent Consulting Provider: Margarito Brian Reason/Comments: cellulitis Do you want consulting provider notified?: Yes Placement Type Exists?: Yes [facility] Course: This dictation is both H&P and discharge summary 77-year-old female admitted secondary to sepsis from a cellulitis of bilateral lower extremity is predominantly in the left lower extremity. Patient is on Unasyn and vancomycin and do not have any wound cultures available from the other hospital. Patient appears to have all the lightest from my mild acute lung injury from sepsis and do not believe patient has CHF exacerbation. Echocardiogram is pending patient's BNP is 800 patient does not have any JVD. No clinical evidence of heart failure or heart failure exacerbation at this time. My suspicion is extremely low for pneumonia. Patient may have asymptomatic bacteriuria does have urine cultures positive for enterococcus. 03/03/2018 Patient is clinically doing well at this time. If cleared by infectious disease will be discharged today PHYSICAL EXAMINATION: GENERAL: The patient is alert and oriented x3, not in any acute distress. Well developed, well nourished. HEENT: Pupils are round and equally reacting to light. EOMI. No scleral icterus. No conjunctival pallor. Normocephalic, atraumatic. No pharyngeal erythema. No thyromegaly. CARDIOVASCULAR: S1 and S2 present. No murmurs, rubs, or gallops. PULMONARY: Chest is clear to auscultation, no wheezing or crackles. ABDOMEN: Soft, nontender, nondistended, normoactive bowel sounds. No palpable organomegaly. MUSCULOSKELETAL: No joint swelling or deformity. EXTREMITIES: No cyanosis, clubbing, or pedal edema. NEUROLOGICAL: Gross neurological examination did not reveal any focal deficits. SKIN: Cellulitis in both extremities improved wound in the left leg looks clean Assessment and Plan Plan: -Sepsis which improved at this time most probably due to cellulitis patient was on Unasyn and infectious disease evaluated the patient, patient probably can be discharged today. By infectious disease on oral antibiotics -Bilateral infiltrates suspicious for pneumonia although patient with clinical symptomatology is not typical for pneumonia the other differentials being acute lung injury from sepsis, atypical pneumonia or influenza pneumonia. I do not believe patient has CHF. Patient has collapsible IVC on the echocardiogram. Anyway patient will be continued on diuretic therapy which can help her blood pressure hydrocodone thiazide will be discontinued Lasix will be continued upon discharge. Patient's EF is 60-65% with concentrate left ventricular hypertrophy -Hypothyroidism -Type 2 diabetes mellitus -Acute renal failure secondary to sepsis which improved at this time. Sepsis improved as well. -Hypertension -Acute renal failure improved Plan - Discharge Summary New Discharge Prescriptions: Continue Nitroglycerin Sl Tabs [Nitrostat] 0.4 mg SUBLINGUAL Q5M PRN PRN Reason: Chest Pain Meclizine [Antivert] 25 mg PO TID PRN PRN Reason: Vertigo Liraglutide [Victoza 3-Andrea] 1.8 mg SQ DAILY Lisinopril 40 mg PO DAILY Levothyroxine Sodium [Synthroid] 200 mcg PO DAILY Insulin Glargine,Hum.rec.anlog [Lantus Solostar] 30 unit SQ DAILY Aspirin EC [Ecotrin Low Dose] 81 mg PO DAILY Lansoprazole 30 mg PO DAILY Ibuprofen [Motrin] 800 mg PO TID PRN PRN Reason: Pain Furosemide [Lasix] 40 mg PO DAILY Diltiazem HCl [Diltiazem 24Hr ER] 300 mg PO DAILY Citalopram Hydrobromide [CeleXA] 20 mg PO DAILY Discontinued Hydrochlorothiazide [Hydrodiuril] 25 mg PO DAILY Discharge Medication List Aspirin EC [Ecotrin Low Dose] 81 mg PO DAILY 03/01/18 [History] Citalopram Hydrobromide [CeleXA] 20 mg PO DAILY 03/01/18 [History] Diltiazem HCl [Diltiazem 24Hr ER] 300 mg PO DAILY 03/01/18 [History] Furosemide [Lasix] 40 mg PO DAILY 03/01/18 [History] Ibuprofen [Motrin] 800 mg PO TID PRN 03/01/18 [History] Insulin Glargine,Hum.rec.anlog [Lantus Solostar] 30 unit SQ DAILY 03/01/18 [ History] Lansoprazole 30 mg PO DAILY 03/01/18 [History] Levothyroxine Sodium [Synthroid] 200 mcg PO DAILY 03/01/18 [History] Liraglutide [Victoza 3-Andrea] 1.8 mg SQ DAILY 03/01/18 [History] Lisinopril 40 mg PO DAILY 03/01/18 [History] Meclizine [Antivert] 25 mg PO TID PRN 03/01/18 [History] Nitroglycerin Sl Tabs [Nitrostat] 0.4 mg SUBLINGUAL Q5M PRN 03/01/18 [History] Patient Instructions/Handouts: Type 2 Diabetes in the Older Adult (DC) Activity/Diet/Wound Care/Special Instructions: consistent carb diet as tolerated activity as tolerated Right leg Left leg Discharge Disposition: HOME SELF-CARE
[2018-03-03 16:52] LABS: Glucose,Whole Blood 147 mg/dL (75-99)
[2018-03-03 20:26] LABS: Glucose,Whole Blood 161 mg/dL (75-99)
[2018-03-03 20:55] LABS: Hemoglobin A1C 6.6 % (4.0-6.0)
[2018-03-03] MEDS: INSULIN DETEMIR 100 UNIT/ML 10 ML VIAL SQ SCH (21:11)
[2018-03-04] MEDS: AMPICILLIN-SULBACTAM 3 GM in SODIUM CHLORIDE 0.9% 100 ML IVPB SCH ×4 (05:54→23:34)
[2018-03-04] MEDS: LEVOTHYROXINE 100 MCG TAB PO SCH (05:55)
[2018-03-04 07:23] LABS: Glucose,Whole Blood 100 mg/dL (75-99)
[2018-03-04] MEDS: INSULIN ASPART 100 UNIT/ML 1 ML 10 ML VIAL SQ SCH ×4 (08:08→21:31)
[2018-03-04] MEDS: ASPIRIN 81 MG PO SCH (08:09)
[2018-03-04] MEDS: CITALOPRAM HYDROBROMIDE 20 MG TAB PO SCH (08:10)
[2018-03-04] MEDS: HEPARIN SODIUM,PORCINE 5,000 UNIT/ML 1 ML VIAL SQ SCH ×3 (08:10→23:34)
[2018-03-04] MEDS: FUROSEMIDE 40 MG TAB PO SCH (08:10)
[2018-03-04] MEDS: DILTIAZEM CD 300 MG CAP.ER.24H PO SCH (08:10)
[2018-03-04] MEDS: FAMOTIDINE 20 MG TAB PO SCH (08:10)
[2018-03-04] MEDS: PANTOPRAZOLE 40 MG TABLET PO SCH (08:10)
[2018-03-04] MEDS: LISINOPRIL 20 MG TAB PO SCH (08:11)
[2018-03-04] MEDS: VICTOZA 1.8MG SQ SCH (08:11)
[2018-03-04] MEDS: HYDROCHLOROTHIAZIDE 25 MG TAB PO SCH (08:11)
[2018-03-04 12:39] LABS: Glucose,Whole Blood 114 mg/dL (75-99)
[2018-03-04 17:33] LABS: Glucose,Whole Blood 122 mg/dL (75-99)
[2018-03-04] MEDS: CHOLESTYRAMINE (WITH SUGAR) 4 GM PACKET PO SCH (21:17)
[2018-03-04] MEDS: LACTOBACILLUS ACIDOPH & BULGAR 1 EACH PACKET PO SCH (21:17)
[2018-03-04 21:28] LABS: Glucose,Whole Blood 174 mg/dL (75-99)
[2018-03-04] MEDS: INSULIN DETEMIR 100 UNIT/ML 10 ML VIAL SQ SCH (21:31)
--- NOTE | 2018-03-04 23:52 | P.PN ---
Subjective Progress Note Date: 03/04/18 77-year-old female who lives independently, was transferred to her facility after several days of inpatient stay at the outside hospital. The patient's daughter is present and helps with the past history, apparently the patient was not feeling well and the coworker. 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 They came and checked on her she seemed to be ill but cognizant. Apparently after that she lost 3 days of time, she did not take care of herself, she did not take care of her cat, she did not take her medications and eventually awoken to EMS in her home. She was transferred local hospital and it was not 2 hours later she started to have an understanding that she had become ill. She's not had an episode like this in the past. The patient does have a history of significant chronic venous stasis to her lower extremities has been cared for in the outpatient setting. She's undergone multiple procedures to the lower extremities with laser venous ablation therapy and injection treatments for her chronic venous stasis and the results and ulcerations. She relates since procedures she's had some improvement but still having some ulcerations to her left leg. She does relate that she has significant degenerative joint disease was also to potentially receive some stem cell injections into her left knee for her chronic difficulties. Patient however became very ill and was hospitalized. During her hospital stay multiple events occurred including evidence of a positive blood culture with Streptococcus, urine culture with enterococcus in the markedly elevated BNP level. The patient relates she is feeling better but has developed some worsening shortness of breath that was not present at admission this seems to be showing just some improvement at this point in time since she has been back on some Lasix therapy. The patient relates that she routinely is supposed to be on Lasix however whenever she travels she stops taking Lasix because it makes her urinate too much. She does have a trip to [place] scheduled coming up soon and she is aware that she is not currently able to make that trip. She does not believe that she's been taking her Lasix since there December. 03/02/2018 patient's feeling considerably better today. With diuretic therapy, antibiotics and lower extremity treatment she's feeling considerably better. The edema is improving. The right lower extremity erythema is also improved and there is much less tenderness. Blood Sugars are also improving. 03/04/2018 patient feels considerably improved today. With diuretic therapy, compression therapy, antibiotics she is now much improved. Her respiratory status is improved. She is much less short of breath. Lower extremity edema is improving. Redness lower extremities improving. Ulceration to be evaluated. No other new complaints. Patient was not taking her diuretic therapy as an outpatient. Objective - Vital Signs Vital signs: Vital Signs Temp 98.4 F 03/04/18 14:10 Pulse 73 03/04/18 14:10 Resp 16 03/04/18 14:10 BP 147/56 03/04/18 14:10 Pulse Ox 93 L 03/04/18 14:10 Intake & Output 03/04/18 03/04/18 03/05/18 06:59 18:59 06:59 Weight 126.5 kg Other: Voiding Method Toilet # Voids 3 1 - Exam Pleasant 77-year-old woman who has obesity is modestly comfortable at this time HEENT: Anicteric conjunctiva are pink and moist nasal mucosa grossly intact without significant lesions, there is no thrush. Dentition is poor Neck: The neck is supple without significant lymphadenopathy or thyromegaly. Lungs: There is symmetrical bilateral air entry, few basilar crackles without significant bronchial sounds no dullness or egophony is noted Heart: Regular rate and rhythm with an audible S1-S2, no S3 soft S4. 2/6 systolic murmur left sternal border that radiates to the axilla PMI is nondisplaced without heave or thrill Abdomen: Obese, Positive bowel sounds soft and nontender without palpable masses or organomegaly. There was no guarding or rebound. Extremities: The upper extremities have excellent pulses they are symmetric, no significant petechiae or telangiectasia. No splinter hemorrhages were noted. The lower extremities revealed evidence of the lower extremity edema right greater than left at this time. There is evidence of some erythema to the right leg with some warmth and minimal tenderness which has improved today. There are ulcerations in the left lateral leg please see the nursing photography for evaluation of these ulcerations that are full-thickness and present on admission. Appear to be venous stasis in nature. The legs are not very tender. Neuro: Awake alert oriented to person place and time. There are no acute new gross focal sensory motor deficits.Daughter was present relates that her mother is at her baseline mental status with no new deficits. - Labs CBC & Chem 7: 03/02/18 09:00 03/02/18 09:00 Labs: Abnormal Lab Results - Last 24 Hours (Table) 03/04/18 03/04/18 03/04/18 Range/Units 07:08 12:36 17:20 POC Glucose (mg/dL) 100 H 114 H 122 H (75-99) mg/dL 03/04/18 Range/Units 21:22 POC Glucose (mg/dL) 174 H (75-99) mg/dL Microbiology - Last 24 Hours (Table) 03/01/18 15:00 Blood Culture - Preliminary Blood No Growth after 72 hours Laboratory Results WBC 11.2 k/uL (3.8-10.6) H 03/02/18 09:00 RBC 3.77 m/uL (3.80-5.40) L 03/02/18 09:00 Hgb 10.3 gm/dL (11.4-16.0) L 03/02/18 09:00 Hct 33.0 % (34.0-46.0) L 03/02/18 09:00 MCV 87.4 fL (80.0-100.0) 03/02/18 09:00 MCH 27.4 pg (25.0-35.0) 03/02/18 09:00 MCHC 31.3 g/dL (31.0-37.0) 03/02/18 09:00 RDW 13.9 % (11.5-15.5) 03/02/18 09:00 Plt Count 347 k/uL (150-450) 03/02/18 09:00 Neutrophils % 68 % 03/01/18 15:00 Lymphocytes % 18 % 03/01/18 15:00 Monocytes % 7 % 03/01/18 15:00 Eosinophils % 4 % 03/01/18 15:00 Basophils % 1 % 03/01/18 15:00 Neutrophils # 8.0 k/uL (1.3-7.7) H 03/01/18 15:00 Lymphocytes # 2.1 k/uL (1.0-4.8) 03/01/18 15:00 Monocytes # 0.8 k/uL (0-1.0) 03/01/18 15:00 Eosinophils # 0.4 k/uL (0-0.7) 03/01/18 15:00 Basophils # 0.1 k/uL (0-0.2) 03/01/18 15:00 Sodium 139 mmol/L (137-145) 03/02/18 09:00 Potassium 4.0 mmol/L (3.5-5.1) 03/02/18 09:00 Chloride 104 mmol/L (98-107) 03/02/18 09:00 Carbon Dioxide 28 mmol/L (22-30) 03/02/18 09:00 Anion Gap 7 mmol/L 03/02/18 09:00 BUN 13 mg/dL (7-17) 03/02/18 09:00 Creatinine 0.98 mg/dL (0.52-1.04) 03/02/18 09:00 Est GFR (CKD-EPI)AfAm 65 (>60 ml/min/1.73 sqM) 03/02/18 09:00 Est GFR (CKD-EPI)NonAf 56 (>60 ml/min/1.73 sqM) 03/02/18 09:00 Glucose 102 mg/dL (74-99) H 03/02/18 09:00 POC Glucose (mg/dL) 174 mg/dL (75-99) H 03/04/18 21:22 POC Glu Manager Of [employer] DEVONTE Nathalia Alcala 03/04/18 21:[address] Glu mg/dL 143 03/02/18 09:00 Hemoglobin A1c 6.6 % (4.0-6.0) H 03/02/18 09:00 Calcium 9.1 mg/dL (8.4-10.2) 03/02/18 09:00 Total Bilirubin 0.3 mg/dL (0.2-1.3) 03/01/18 15:00 AST 23 U/L (14-36) 03/01/18 15:00 ALT 33 U/L (9-52) 03/01/18 15:00 Alkaline Phosphatase 66 U/L (38-126) 03/01/18 15:00 Troponin I <0.012 ng/mL (0.000-0.034) 03/01/18 15:00 NT-Pro-B Natriuret Pep 863 pg/mL 03/01/18 15:00 Total Protein 6.2 g/dL (6.3-8.2) L 03/01/18 15:00 Albumin 2.8 g/dL (3.5-5.0) L 03/01/18 15:00 Procalcitonin 0.37 ng/mL (0.02-0.09) H 03/01/18 15:00 Random Vancomycin <5.0 ug/mL 03/01/18 15:00 Microbiology 03/01/18 15:00 Blood Blood Culture - Preliminary No Growth after 72 hours Assessment and Plan (1) Streptococcal sepsis Narrative/Plan: 77 year old female presents an outside hospital with alteration of her mental status and was not functioning well for approximately 3 days. She is now had a recovery of her neurological status and is clear and interactive. However continues to feel short of breath and has had some chest heaviness. She relates it does not feel like the tenderness that she had some and she takes her nitroglycerin. Patient has evidence of the lower extremity erythema and ulcerations of the left leg. It appears the skin is a portal of entry for her streptococcal sepsis. As noted there is also urinary tract infection with enterococcus. Consequently antibiotic therapy is transitioned to Unasyn which should give us excellent coverage for both of these isolated pathogens. Follow blood cultures have been requested. The patient also appears to have evidence of congestive heart failure as etiology of the changes on her chest x-ray. She did have a computed tomography scan at the other hospital which failed to reveal evidence of pulmonary embolism , however there was evidence of some change that is now considerably worsened after she has had significant amounts of hydration. She was or shortness of breath is improving she's had some Lasix. Echocardiogram is requested to further evaluate her congestive heart failure, her ejection fraction and the extent of her murmur It is likely that her congestive heart failure was worsened by the onset of the sepsis and her lack of compliance with taking her Lasix in the outpatient setting. I agree that the patient will not be ready to go to [facility]. 03/02/2018 patient's feeling better today. The blood culture from this facility is negative with no evidence of any ongoing bacteremia with strep as noted at the other facility. Patient is denying any new urine symptoms. The patient's echocardiogram reveals evidence of a good ejection fraction, evidence of some valvular regurgitation, and some mild pulmonary hypertension. The patient's BNP has fallen to 800 from 3280 showing a good response to her diuretic therapy. We'll continue with the local care to the lower extremities. Have requested long marianela wraps to be used if compress further up her legs will be more comfortable for her. We discussed the importance of compression in helping this chronic problem. The cellulitis is responding well to the current antibiotic therapy of Unasyn. If she continues to improve at this rate she likely will be able to be discharged home on oral antibiotic therapy. 03/04/2018 patient is now considerably improved. Will be discharged home in the morning. Her fevers have resolved. She's feeling quite well overall. He left lower extremity ulceration was evaluated initially improvement with the silver alginate dressing. This can be continued in outpatient setting and I believe will have home care to help. Understands importance of ongoing compression to help with his significant lower extremity edema. Also the significant importance of taking her diuretic therapy. Should be able to be watery back to work after the holiday week. She should follow up with her primary care physician and her tube sorter in the outpatient setting and she can be referred to the outpatient infectious disease clinic if she has further issues. Current Visit: Yes Status: Acute Code(s): A40.9 - STREPTOCOCCAL SEPSIS, UNSPECIFIED SNOMED Code(s): 706709743 (2) Enterococcus UTI Current Visit: Yes Status: Acute Code(s): N39.0 - URINARY TRACT INFECTION, SITE NOT SPECIFIED; B95.2 - ENTEROCOCCUS THE CAUSE OF DISEASES CLASSIFIED ELSEWHERE SNOMED Code(s): 275984242550904 (3) Acute on chronic systolic (congestive) heart failure Current Visit: Yes Status: Acute Code(s): I50.23 - ACUTE ON CHRONIC SYSTOLIC (CONGESTIVE) HEART FAILURE SNOMED Code(s): 020397529 (4) Chronic venous hypertension with ulcer Current Visit: Yes Status: Acute Code(s): I87.319 - CHRONIC VENOUS HYPERTENSION W ULCER OF UNSP LOW EXTRM; L97.909 - NON-PRS CHRONIC ULC UNSP PRT OF UNSP LOW LEG W UNSP SEVERITY SNOMED Code(s): 631648872
[2018-03-05 01:44] VITALS: RESP 20
[2018-03-05] MEDS: AMPICILLIN-SULBACTAM 3 GM in SODIUM CHLORIDE 0.9% 100 ML IVPB SCH (05:43)
[2018-03-05] MEDS ORDERED: LOPERAMIDE 2 MG CAP PO PRN (06:06)
[2018-03-05] MEDS: LEVOTHYROXINE 100 MCG TAB PO SCH (06:13)
[2018-03-05 06:39] VITALS: BP 167/70; PULSE 68; TEMP 97.9
[2018-03-05 06:58] LABS: Glucose,Whole Blood 111 mg/dL (75-99)
[2018-03-05] MEDS: INSULIN ASPART 100 UNIT/ML 1 ML 10 ML VIAL SQ SCH (07:41)
[2018-03-05] MEDS: HYDROCHLOROTHIAZIDE 25 MG TAB PO SCH (07:53)
[2018-03-05] MEDS: LACTOBACILLUS ACIDOPH & BULGAR 1 EACH PACKET PO SCH (07:54)
[2018-03-05] MEDS: FUROSEMIDE 40 MG TAB PO SCH (07:54)
[2018-03-05] MEDS: CHOLESTYRAMINE (WITH SUGAR) 4 GM PACKET PO SCH (07:54)
[2018-03-05] MEDS: ASPIRIN 81 MG PO SCH (07:54)
[2018-03-05] MEDS: PANTOPRAZOLE 40 MG TABLET PO SCH (07:54)
[2018-03-05] MEDS: DILTIAZEM CD 300 MG CAP.ER.24H PO SCH (07:54)
[2018-03-05] MEDS: HEPARIN SODIUM,PORCINE 5,000 UNIT/ML 1 ML VIAL SQ SCH (07:54)
[2018-03-05] MEDS: LISINOPRIL 20 MG TAB PO SCH (07:54)
[2018-03-05] MEDS: CITALOPRAM HYDROBROMIDE 20 MG TAB PO SCH (07:54)
[2018-03-05] MEDS: VICTOZA 1.8MG SQ SCH (07:55)
== END 2018-03-05 10:58 | disposition home or self-care (01) | DRG 871 ==
LOC: 4MS4W 13:57
PROVIDERS: ADMIT Internal Medicine; ATTEND Internal Medicine
DX: A40.9 Streptococcal sepsis, unspecified (principal); J18.9 Pneumonia, unspecified organism; I50.22 Chronic systolic (congestive) heart failure; I87.312 Chronic venous hypertension (idiopathic) with ulcer of left lower extremity; L03.115 Cellulitis of right lower limb; L03.116 Cellulitis of left lower limb; L97.929 Non-pressure chronic ulcer of unspecified part of left lower leg with unspecified severity; N39.0 Urinary tract infection, site not specified; Z68.41 Body mass index [BMI] 40.0-44.9, adult; S27.399A Other injuries of lung, unspecified, initial encounter; B95.2 Enterococcus as the cause of diseases classified elsewhere; E03.9 Hypothyroidism, unspecified; T50.1X6A Underdosing of loop [high-ceiling] diuretics, initial encounter; E11.622 Type 2 diabetes mellitus with other skin ulcer; F32.9 Major depressive disorder, single episode, unspecified; I11.0 Hypertensive heart disease with heart failure; I27.20 Pulmonary hypertension, unspecified; I87.8 Other specified disorders of veins; M19.90 Unspecified osteoarthritis, unspecified site; R07.9 Chest pain, unspecified; E66.9 Obesity, unspecified; Z87.891 Personal history of nicotine dependence; Z79.82 Long term (current) use of aspirin; Z79.890 Hormone replacement therapy; Z79.4 Long term (current) use of insulin; Z79.899 Other long term (current) drug therapy; Z91.128 Patient's intentional underdosing of medication regimen for other reason; Z80.0 Family history of malignant neoplasm of digestive organs; Z82.49 Family history of ischemic heart disease and other diseases of the circulatory system; Z82.0 Family history of epilepsy and other diseases of the nervous system
CPT/HCPCS: 71046; 80048; 80053; 80202; 83036; 83880; 84145; 84484; 85025; 85027; 87040; 87324; 93005; 93306